=== PATIENT | female | born 1980 | race Caucasian/White ===

== ENCOUNTER 2017-06-27 01:01 | Inpatient (IN) | payer BC ==
[~2017-06-27] VITALS: Ht 167.6 cm; Wt 72.7 kg
[2017-06-27] VITALS (27 sets, daily range): BP systolic 105–143; BP diastolic 60–582; PULSE 48–75; TEMP 97.4–98.1
[~2017-06-27 01:01] MED LIST: DOXYCYCLINE 10100 MG PO; MOTRIN 800800 MG/TAB PO; PERCOCET 325 MG1 TA2 PO
[2017-06-27] MEDS ORDERED: TYLENOL 500MG500 MG PO (02:42)
[2017-06-27] MEDS ORDERED: BENADRYL25 M2 PO (02:43)
[2017-06-27] MEDS ORDERED: PRENATAL PO (02:44)
[2017-06-27] MEDS ORDERED: CLARITIN 1010 MG/TAB PO (02:44)
[2017-06-27 04:47] LABS: BASO % 0.3 % (0.0-2.0); EOS % 0.1 % (0-4.0); GRAN # 7.6 (1.4-6.5); GRAN % 69.7 % (42.2-75.2); HEMATOCRIT 35.4 % (37.0-47.0); LYMPH # 2.3 (1.2-3.4); LYMPH % 21.3 % (20.0-51.0); MEAN CELL VOLUME 89 fl (80.0-100.0); MEAN CORPUSCULAR HEMOGLOBIN 30 pg (27.0-31.0); MEAN CORPUSCULAR HGB CONC 34 g/dl (33.0-37.0); MEAN PLATELET VOLUME 11.8 fl (7.4-10.4); MONO # 0.9 (0.1-0.6); MONO % 7.9 % (1.7-9.3); PLATELET COUNT 247 K/mm3 (130-400); RED BLOOD COUNT 3.97 M/mm3 (4.10-5.30); REDCELL DISTRIBUTION WIDTH-CV 13.1 % (11.5-14.5); WHITE BLOOD COUNT 10.9 K/mm3 (4.8-10.8)
[2017-06-28 00:30] VITALS: BP 133/90; PULSE 53; TEMP 98
[2017-06-28 09:30] VITALS: BP 140/72; PULSE 72; TEMP 97.5
[2017-06-28 17:30] VITALS: BP 120/76; PULSE 52; TEMP 97.9
[2017-06-28 21:15] VITALS: BP 131/71; PULSE 64; TEMP 97.7
[2017-06-29 08:45] VITALS: BP 119/74; PULSE 56; TEMP 98
[2017-06-29] MEDS ORDERED: IBU800 M1 PO (09:51)
[2017-06-29] MEDS ORDERED: PERCOCET 325 MG1 TA2 PO (09:51)
== END 2017-06-29 10:20 | disposition home or self-care (01) | DRG 775 ==
LOC: LDRO 01:01 → LDR 03:35 → OB 12:45
PROVIDERS: Obstetrics & Gynecology
PROC: 10E0XZZ Delivery of Products of Conception, External Approach (ICD-10-PCS; principal; 2017-06-27)
DX: O99.824 Streptococcus B carrier state complicating childbirth (principal); O77.0 Labor and delivery complicated by meconium in amniotic fluid; Z3A.38 38 weeks gestation of pregnancy; Z37.0 Single live birth
CPT/HCPCS: J7120

== ENCOUNTER → 2019-11-29 | Outpatient (CLI) | payer OTHER ==
[~2019-11-29] MED LIST changes: +BENADRYL25 M2 PO; +CLARITIN 1010 MG/TAB PO; +IBU800 M1 PO; +PRENATAL PO; +TYLENOL 500MG500 MG PO
== END ==
LOC: MC.RAD 08:20
DX: Z12.31 Encounter for screening mammogram for malignant neoplasm of breast (principal)

== ENCOUNTER → 2023-02-16 | Outpatient (CLI) | payer BC | LOC: MC.RAD 08:59 | DX: R92.8 Other abnormal and inconclusive findings on diagnostic imaging of breast (principal) ==